=== PATIENT | male | born 1945 | race Caucasian/White ===

== ENCOUNTER → 2016-07-21 | Outpatient (CLI) | payer MEDICARE | END | disposition home or self-care (01) | LOC: RAD 09:05 | PROVIDERS: ATTEND Surgery Plastic and Reconstructive Surgery | DX: Z01.810 Encounter for preprocedural cardiovascular examination (principal); Z01.811 Encounter for preprocedural respiratory examination; Z01.812 Encounter for preprocedural laboratory examination ==

== ENCOUNTER 2017-05-29 13:05 | Emergency (ER) | payer MEDICARE | END 2017-05-29 13:56 | disposition left against medical advice (07) | LOC: ER 13:05 | DX: Z53.21 Procedure and treatment not carried out due to patient leaving prior to being seen by health care provider (principal) ==

== ENCOUNTER → 2017-06-15 | Outpatient (CLI) | payer MEDICARE ==
--- NOTE | 2017-06-17 21:39 | CT ---
EXAM DESCRIPTION: Sinuses: Computed Tomography. CLINICAL HISTORY: CHRONIC ETHMOIDAL SINUSITIS COMPARISON: None Available. TECHNIQUE: Spiral, axial 2.5 mm scans through the axial facial bones without contrast. Soft tissue and sinus wall technique. Coronal and sagittal 2.0 mm reconstructions. Total Exam DLP: 346.61 mGy-cm. This exam was performed according to our departmental CT dose-optimization program which includes automated exposure control, adjustment of the mA and/or kV according to patient size and/or use of iterative reconstruction technique; to reduce radiation dose to as low as reasonably achievable (ALARA). FINDINGS: Mucoperiosteal thickening involving almost 50% of the bilateral maxillary antra more anterior than posterior. Bilateral ostiomeatal units are obstructed. Small air-fluid level in the right antrum. Diffuse involvement of the bilateral ethmoid air cells more anterior than posterior. Cannot exclude minimal bone destruction. No periosteal thickening in the right sphenoid air cell and obstruction of the right sphenoid nasal ostia. Minimal fluid in the left sphenoid air cell and obstruction of the corresponding ostia. Small frontal sinuses bilaterally with bilateral mucoperiosteal thickening. No air-fluid levels. Bilateral near obstruction of the superior nasal passageways beginning at the level of the middle turbinates bilaterally. Turbinate mucosal hypertrophy bilaterally. Blockage more prominent in the mid nasal passageways. Nasal septum is in the midline. Included mastoid air cells bilaterally show no significant fluid or mucosal thickening. IMPRESSION: 1. Acute and chronic paranasal sinusitis with acute disease seen in the right maxillary antrum and left sphenoid air cell. Also bilateral anterior ethmoid air cells. 2. Bilateral obstruction of the ostiomeatal units. Extensive disease in the ethmoid air cells; cannot exclude minimal bone destruction. 3. Bilateral partial obstruction of the nasal passageways. Nasal septum is not deviated. Electronically signed by: Toño Clark MD 06/17/2017 9:38 PM [employer] Workstation: [employer]
== END ==
LOC: CT 09:30
PROVIDERS: ATTEND Otolaryngology Otolaryngology/Facial Plastic Surgery
DX: J33.0 Polyp of nasal cavity (principal); J32.2 Chronic ethmoidal sinusitis

== ENCOUNTER 2018-03-29 12:05 | Emergency (ER) | payer MEDICARE ==
[2018-03-29 12:24] VITALS: BP 179/103; TEMP 98.3
[2018-03-29] MEDS ORDERED: TETANUS,DIPHTHERIA,PERTUSSIS 1 EA SYG IM ONE (13:12)
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
--- NOTE | 2018-03-29 13:30 | RAD ---
EXAM DESCRIPTION: Forearm,Left CLINICAL HISTORY: 72 years Male, pain COMPARISON: None. FINDINGS: Two views of the left forearm show no acute fracture or malalignment. Question soft tissue swelling proximally/posteriorly. No radiopaque foreign body or soft tissue gas. A tiny calcification adjacent to the distal left radius is probably not acute.. IMPRESSION: Soft tissue swelling without acute fracture or malalignment. If the patient has left wrist pain, dedicated wrist series is recommended. Electronically signed by: Fernando Erazo MD 03/29/2018 1:28 PM [facility]
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
[2018-03-29 13:47] VITALS: O2SAT 97
== END 2018-03-29 13:47 | disposition home or self-care (01) ==
LOC: ER 12:05
DX: S51.812A Laceration without foreign body of left forearm, initial encounter (principal); M25.512 Pain in left shoulder; W20.8XXA Other cause of strike by thrown, projected or falling object, initial encounter; Y93.89 Activity, other specified; Z23 Encounter for immunization; Z79.82 Long term (current) use of aspirin; Z79.899 Other long term (current) drug therapy

== ENCOUNTER → 2018-12-04 | Outpatient (CLI) | payer MEDICARE | LOC: GMAJS 12:49 | PROVIDERS: ATTEND Physician Assistant | DX: R10.84 Generalized abdominal pain (principal) ==

== ENCOUNTER → 2019-07-09 | Outpatient (CLI) | payer MEDICARE | LOC: GMAE 10:51 | PROVIDERS: ATTEND Family Medicine | DX: Z12.5 Encounter for screening for malignant neoplasm of prostate (principal); Z79.899 Other long term (current) drug therapy | CPT/HCPCS: 84443; G0103 ==